=== PATIENT | male | born 1950 | race Caucasian/White ===

== ENCOUNTER 2016-06-30 10:17 | Outpatient (CLI) | payer OTHER | END 2016-06-30 10:18 | disposition home or self-care (01) | DX: R53.83 Other fatigue (principal); D64.9 Anemia, unspecified; E78.2 Mixed hyperlipidemia ==

== ENCOUNTER 2017-06-22 07:59 | Outpatient (CLI) | payer OTHER ==
[2017-06-22 10:23] LABS: BILIRUBIN,URINE NEGATIVE (NEGATIVE); GLUCOSE, URINE (UA) NEGATIVE (NEGATIVE); KETONES,URINE (UA) NEGATIVE (NEGATIVE); LEUKOCYTE ESTERASE, URINE NEGATIVE (NEGATIVE); NITRITE,URINE NEGATIVE (NEGATIVE); OCCULT BLOOD,URINE NEGATIVE (NEGATIVE); PH,URINE 6.5 PH (5.0-7.5); PROTEIN,URINE NEGATIVE (NEGATIVE); UROBILINOGEN,URINE 0.2 (NORMAL) E.U./dL (NORMAL)
[2017-06-22 10:25] LABS: BASOPHILS % (AUTO) 0.3 %; EOSINOPHILS # (AUTO) 0.1 10^3/uL (0.0-0.7); EOSINOPHILS % (AUTO) 1.5 %; HGB - HEMOGLOBIN 14.4 g/dL (14.0-18.0); LYMPHOCYTES # (AUTO) 1.3 10^3/uL (1.5-3.5); LYMPHOCYTES % (AUTO) 28.7 %; MEAN CORPUSCULAR HEMOGLOBIN 31.1 pg (27.0-31.0); MEAN CORPUSCULAR HGB CONC 33.9 g/dL (32.0-36.0); MEAN CORPUSCULAR VOLUME 91.5 fL (80.0-94.0); MEAN PLATELET VOLUME 8.7 fL (7.4-11.4); MEAN RETIC VALUE 113.5; MONOCYTES # (AUTO) 0.4 10^3/uL (0.0-1.0); MONOCYTES % (AUTO) 8.4 %; NEUTROPHILS # (AUTO) 2.8 10^3/uL (1.5-6.6); NEUTROPHILS % (AUTO) 61.1 %; PLT - PLATELET COUNT 174 10^3/uL (130-450); RED BLOOD COUNT 4.64 10^6/uL (4.70-6.10); RED CELL DISTRIBUTION WIDTH 13.5 % (12.0-15.0); WHITE BLOOD COUNT 4.5 x10^3/uL (4.8-10.8)
[2017-06-22 10:36] LABS: CLARITY,URINE CLEAR (CLEAR)
[2017-06-22 11:05] LABS: FERRITIN 49.4 ng/mL (23.9-336.2)
== END 2017-06-22 08:00 | disposition home or self-care (01) ==
LOC: LAB.F 07:59
PROVIDERS: ATTEND Internal Medicine
DX: R36.1 Hematospermia (principal); D64.9 Anemia, unspecified
CPT/HCPCS: 36415; 81001; 81003; 82607; 82728; 83010; 84153; 85025; 85044; 86880; 87086

== ENCOUNTER 2018-01-20 12:16 | Outpatient (CLI) | payer MEDICARE, OTHER ==
[2018-01-20 17:50] LABS: BASOPHILS % (AUTO) 0.4 %; EOSINOPHILS # (AUTO) 0.1 10^3/uL (0.0-0.7); EOSINOPHILS % (AUTO) 1.5 %; HGB - HEMOGLOBIN 13.8 g/dL (14.0-18.0); LYMPHOCYTES # (AUTO) 1.2 10^3/uL (1.5-3.5); LYMPHOCYTES % (AUTO) 22.3 %; MEAN CORPUSCULAR HEMOGLOBIN 31.1 pg (27.0-31.0); MEAN CORPUSCULAR HGB CONC 33.1 g/dL (32.0-36.0); MEAN PLATELET VOLUME 8.9 fL (7.4-11.4); MONOCYTES # (AUTO) 0.3 10^3/uL (0.0-1.0); MONOCYTES % (AUTO) 6.6 %; NEUTROPHILS # (AUTO) 3.6 10^3/uL (1.5-6.6); NEUTROPHILS % (AUTO) 69.2 %; PLT - PLATELET COUNT 246 10^3/uL (130-450); RED BLOOD COUNT 4.43 10^6/uL (4.70-6.10); RED CELL DISTRIBUTION WIDTH 13.5 % (12.0-15.0); WHITE BLOOD COUNT 5.2 x10^3/uL (4.8-10.8)
== END 2018-01-20 23:59 | disposition home or self-care (01) ==
LOC: LAB.F 12:16
PROVIDERS: ATTEND Internal Medicine
DX: D64.9 Anemia, unspecified (principal)
CPT/HCPCS: 36415; 85025

== ENCOUNTER 2018-06-27 08:00 | Outpatient (CLI) | payer MEDICARE | END 2018-06-27 23:59 | disposition home or self-care (01) | LOC: LAB.F 08:00 | PROVIDERS: ATTEND Internal Medicine Cardiovascular Disease | DX: I49.9 Cardiac arrhythmia, unspecified (principal); I49.3 Ventricular premature depolarization | CPT/HCPCS: 83735; 84443 ==

== ENCOUNTER 2020-02-01 10:20 | Outpatient (CLI) | payer MEDICARE ==
[2020-02-01 14:39] LABS: BASOPHILS % (AUTO) 0.4 %; EOSINOPHILS # (AUTO) 0.1 10^3/uL (0.0-0.7); HGB - HEMOGLOBIN 13.9 g/dL (14.0-18.0); LYMPHOCYTES # (AUTO) 1.3 10^3/uL (1.5-3.5); LYMPHOCYTES % (AUTO) 24.8 %; MEAN CORPUSCULAR HEMOGLOBIN 30.8 pg (27.0-31.0); MEAN CORPUSCULAR HGB CONC 32.3 g/dL (32.0-36.0); MEAN CORPUSCULAR VOLUME 95.1 fL (80.0-94.0); MEAN PLATELET VOLUME 10.3 fL (7.4-11.4); MONOCYTES # (AUTO) 0.4 10^3/uL (0.0-1.0); MONOCYTES % (AUTO) 7.9 %; NEUTROPHILS # (AUTO) 3.3 10^3/uL (1.5-6.6); NEUTROPHILS % (AUTO) 64.7 %; PLT - PLATELET COUNT 187 10^3/uL (130-450); RED BLOOD COUNT 4.52 10^6/uL (4.70-6.10); RED CELL DISTRIBUTION WIDTH 12.8 % (12.0-15.0)
[2020-02-01 15:16] LABS: ALBUMIN 4.2 g/dL (3.2-5.5); ALBUMIN/GLOBULIN RATIO 1.6 (1.0-2.2); ALKALINE PHOSPHATASE 65 IU/L (42-121); ALT ALANINE AMINOTRANSFERASE 22 IU/L (10-60); AST ASPARTATE AMINOTRANSFERASE 28 IU/L (10-42); BILIRUBIN,TOTAL 1.2 mg/dL (0.2-1.0); BUN - BLOOD UREA NITROGEN 22 mg/dL (6-20); CALCIUM 9.5 mg/dL (8.5-10.3); CARBON DIOXIDE - CO2 27 mmol/L (21-32); CHLORIDE 106 mmol/L (101-111); CHOL/HDL RATIO 2.8 (<5.0); CHOLESTEROL 223 mg/dL; CREATININE 0.9 mg/dL (0.6-1.2); GLUCOSE 95 mg/dL (70-100); HDL CHOLESTEROL 79 mg/dL; LDL CHOLESTEROL,CALCULATED 134 mg/dL; LDL/HDL RATIO 1.7 (<3.6); SODIUM 140 mmol/L (135-145); TOTAL PROTEIN 6.9 g/dL (6.7-8.2); VLDL CHOLESTEROL 10 mg/dL
== END 2020-02-01 10:21 | disposition home or self-care (01) ==
LOC: LAB.S 10:20
PROVIDERS: ATTEND Family Medicine
DX: I10 Essential (primary) hypertension (principal); M25.562 Pain in left knee; D64.9 Anemia, unspecified; N40.0 Benign prostatic hyperplasia without lower urinary tract symptoms
CPT/HCPCS: 36415; 80053; 80061; 84443; 85025; G0103; 83721; 84153

== ENCOUNTER 2020-02-02 16:39 | Outpatient (CLI) | payer MEDICARE | END 2020-02-02 16:40 | disposition home or self-care (01) | LOC: COV 16:39 | PROVIDERS: ATTEND Surgery | DX: Z01.812 Encounter for preprocedural laboratory examination (principal); Z20.828 Contact with and (suspected) exposure to other viral communicable diseases; K40.90 Unilateral inguinal hernia, without obstruction or gangrene, not specified as recurrent ==

== ENCOUNTER 2020-02-06 07:16 | Day surgery (SDC) | payer MEDICARE ==
[~2020-02-06 07:16] MED LIST: CEFAZOLIN SODIUM IN 0.9 % NACL 2 GM/100 ML BAG IV ONE
[2020-02-06] MEDS ORDERED: fentaNYL 100 MCG/2 ML VIAL IVP ONE (07:17)
[2020-02-06] MEDS ORDERED: MIDAZOLAM 2 MG/2 ML VIAL IVP ONE (07:17)
[2020-02-06] MEDS ORDERED: LACTATED RINGERS 1,000 ML IV ONE ×2 (07:54→10:18)
--- NOTE | 2020-02-06 08:04 | ANESTHESIA ---
Pre-Anesthesia VS, & Labs - Diagnosis Right Inguinal hernia - Procedure Right Open Inguinal Hernia Repair with Mesh Vital Signs: Temp Pulse Resp BP Pulse Ox 36.5 C 53 L 16 166/80 H 99 02/06/20 07:54 02/06/20 07:54 02/06/20 07:54 02/06/20 07:54 02/06/20 07:54 Height: 5 ft 10 in Weight (kg): 66.8 kg Body Mass Index: 21.1 BMI Classification: Healthy weight - NPO >8 hours - Lab Results Lab results reviewed: Yes Home Medications and Allergies Home Medications: Ambulatory Orders Cyanocobalamin (Vitamin B-12) [Vitamin B-12] 1,000 mcg PO DAILY 01/29/20 Multivitamin 1 each PO DAILY 01/29/20 Aspirin [Aspirin EC] 81 mg PO DAILY 02/06/20 Irbesartan [Avapro] 150 mg PO DAILY 06/06/18 Ferrous Gluconate [Iron] 1 tab PO DAILY 10/03/18 Cyanocobalamin (Vitamin B-12) [Vitamin B-12] 1,000 mcg PO DAILY 01/29/20 Multivitamin 1 each PO DAILY 01/29/20 Aspirin [Aspirin EC] 81 mg PO DAILY 02/06/20 Allergies/Adverse Reactions: Allergies Allergy/AdvReac Type Severity Reaction Status Date / Time No Known Drug Allergies Allergy Verified 10/03/18 16:06 Anes History & Medical History - Anesthetic History Anesthesia Complications: reports: Post-Operative Nausea/Vomiting Family history of Anesthesia Complications: Denies Family history of Malignant Hyperthermia: Denies - Medical History Cardiovascular: reports: Hypertension, Other Pulmonary: reports: None Gastrointestinal: reports: None Urinary: reports: Nocturia, Frequency Neuro: reports: None Musculoskeletal: reports: Osteoarthritis, Other (Cervical radiculopathy-improved with PT) Endocrine/Autoimmune: reports: None Blood Disorders: reports: None Skin: reports: None Smoking Status: Never smoker Psychosocial: reports: No issues indicated History of Cancer?: No - Surgical History General: Colonoscopy Results - EKG Results EKG Comparison: Reviewed EKG, Other (LBBB, SB-asymptomatic per patient) Exam General: Alert, Oriented x3, Cooperative, No acute distress Dental: WNL Mouth Opening: Greater than 4 Fingerbreadths Neck Mobility: Normal Mallampati classification: I Thyromental Distance: 4-6 cm Mental/Cognitive Status: Alert/Oriented X3 Cognitive Status: Within normal limits Plan Anesthesia Type: MAC (With surgeon doing field block), Other (GA as back up) Consent for Procedure(s) Verified and Reviewed: Yes Code Status: Attempt Resuscitation ASA classification: 2-Mild systemic disease Is this case an emergency?: No (Questions answered, consent obtained)
[2020-02-06] MEDS ORDERED: ONDANSETRON 4 MG/2 ML VIAL IVP PRN (08:21)
[2020-02-06] MEDS ORDERED: METOCLOPRAMIDE 10 MG/2 ML VIAL IVP PRN (08:21)
[2020-02-06] MEDS ORDERED: MORPHINE 2 MG/ML CARPUJECT IVP PRN (08:21)
[2020-02-06] MEDS ORDERED: ATROPINE ABBOJECT 1 MG/10 ML SYRINGE IVP PRN (08:21)
[2020-02-06] MEDS ORDERED: fentaNYL 100 MCG/2 ML VIAL IVP PRN (08:21)
[2020-02-06] MEDS ORDERED: ePHEDrine 50 MG/ML VIAL IVP PRN (08:21)
[2020-02-06] MEDS ORDERED: HYDROmorphone 0.5 MG/0.5 ML SYRINGE IVP PRN (08:21)
[2020-02-06] MEDS ORDERED: NALOXONE 0.4 MG/ML VIAL IVP PRN (08:21)
[2020-02-06] MEDS ORDERED: BUPIVACAINE 0.25% PF 30 ML VIAL ONE (08:24)
[2020-02-06] MEDS ORDERED: LIDOCAINE 1%-EPI 1:100000 20 ML MDV ONE (08:51)
[2020-02-06] MEDS ORDERED: BUPIVACAINE 0.25% PF 30 ML VIAL SUBQ ONE ×2 (08:58)
[2020-02-06] MEDS ORDERED: LIDOCAINE 1%-EPI 1:100000 20 ML MDV SUBQ ONE ×2 (08:58)
[2020-02-06] MEDS ORDERED: LACTATED RINGERS 1,000 ML IV SCH (09:00)
[2020-02-06] MEDS ORDERED: HYDROcod/ACETAM 5/325 MG TABLET PO PRN (10:29)
--- NOTE | 2020-02-06 10:33 | OPERATIVE REPORT ---
Operative Report - General Procedure Date: 02/06/20 Planned Procedure: open right inguinal hernia Pre-Op Diagnosis: right inguinal hernia Procedure Performed: open right inguinal hernia repair with mesh Post Op Diagnosis: indirect right inguinal hernia - Procedure Note Anesthesia Technique: Local, MAC Estimated Blood Loss (mL): 0 Complications: as above
[2020-02-06] MEDS ORDERED: HYDROcod/ACETAM 5/325 MG TABLET ONE (10:40)
[2020-02-06 10:49] VITALS: BP 150/73
--- NOTE | 2020-02-06 12:51 | ANESTHESIA POST OP EVALUATION ---
Anesthesia Post Eval - Post Anesthesia Eval Vitals: Last Vital Signs Temp 37 C 02/06/20 10:48 Pulse 74 02/06/20 10:48 Resp 14 02/06/20 10:48 BP 150/73 H 02/06/20 10:48 Pulse Ox 100 02/06/20 10:48 CV Function Including HR & BP: positive: Stable Pain Control: positive: Satisfactory Nausea & Vomiting: positive: Negative Mental Status: positive: Patient Participates Respiratory Status: Airway Patent Hydration Status: Satisfactory Anesthesia Complications: positive: None
--- NOTE | 2020-02-06 17:58 | PROCEDURE REPORT ---
DATE OF SERVICE: 02/06/2020 Physician: Dejon Castillo MD PREOPERATIVE DIAGNOSIS: Right inguinal hernia. POSTOPERATIVE DIAGNOSIS: Right inguinal hernia, indirect. PROCEDURE PERFORMED: Open right inguinal hernia repair with mesh, Luann. SURGEON: Dejon Castillo MD TELEVISION PROGRAM DIRECTOR: None. ANESTHESIA: Monitored anesthesia care, IV sedation, local anesthesia. COMPLICATIONS: None. SPECIMEN: Preperitoneal adipose tissue and indirect hernia sac removed, however, not sent for pathol ogy. ESTIMATED BLOOD LOSS: None. COMPLICATIONS: None. DRAINS: None. FINDINGS: A branching ilioinguinal nerve, which ran in a lateral direction. This was mobilized to a llow for repair. PROSTHETIC: Polypropylene mesh. INDICATIONS FOR PROCEDURE: The patient is a healthy, active, 69-year-old gentleman with a symptomati c right inguinal hernia. He presents for open repair with mesh. Risks discussed. Alternatives disc ussed. All questions answered and consent obtained. DESCRIPTION OF PROCEDURE: The patient was properly identified and brought to the operating room and placed in supine position. He voided prior to surgery. Sequential compression devices were placed. Monitored anesthesia care was given, as well as light sedation. He was prepped and draped in a ster ile fashion, and given preoperative antibiotics. Local anesthetic was given throughout the procedure . A 5 cm incision was made in the direction of Adriana's lines, just cephalad of the pubic tubercle. Dissection proceeded with cutting current cautery or sharp dissection. The superficial epigastric v ein was identified, clamped, divided, and tied with 3-0 Vicryl. The aponeurosis was opened in the di rection of its fibers. As above, he had a very lateral and branching ilioinguinal nerve. This was s harply mobilized away from the cord structures towards the internal ring. The cord structures were t hen mobilized and brought up. The shelving border of Poupart's ligament, pubic tubercle and Fidencio's ligament area was all defined. Herniated preperitoneal adipose tissue was mobilized away from the c ord structures, clamped, divided, and tied with a 2-0 silk. The indirect hernia sac was identified a nd mobilized back towards internal ring. It was clamped and suture ligated with a 2-0 silk and divid ed. The mesh was then cut to size and placed in Luann fashion. The mesh was secured with mul tiple interrupted 0 Ethibond sutures. Sutures were placed along the pubic tubercle area, the shelvin g border of Poupart's ligament and medially along the musculature or fascia of the internal plica. T he genitofemoral nerve lay loosely under the mesh. The ilioinguinal nerve was reflected back with th e cord structures during the repair. The medial tail of the mesh was secured to the shelving border of Poupart's ligament with two interrupted 0 Ethibond sutures recreating the internal ring of appropr iate size. The patient coughed, assuring a sturdy repair. The aponeurosis was closed with a running 2-0 Vicryl suture with care not to entrap the ilioinguinal nerve. Maicol's was closed with interrup jennifer 3-0 Vicryl suture. Skin was closed with a running 4-0 Monocryl subcuticular suture. Dressing wa s applied. He tolerated the procedure very well. TD: 02/06/2020 11:13
== END 2020-02-06 07:17 | disposition home or self-care (01) ==
LOC: SDS 07:16
PROVIDERS: ATTEND Surgery
DX: K40.90 Unilateral inguinal hernia, without obstruction or gangrene, not specified as recurrent (principal); I10 Essential (primary) hypertension; N40.0 Benign prostatic hyperplasia without lower urinary tract symptoms
CPT/HCPCS: 49505; A9270; C1781; J0690; J7120

== ENCOUNTER 2021-04-02 09:04 | Outpatient (CLI) | payer MEDICARE ==
[2021-04-02 14:07] LABS: BASOPHILS % (AUTO) 0.2 %; EOSINOPHILS # (AUTO) 0.1 10^3/uL (0.0-0.7); EOSINOPHILS % (AUTO) 2.8 %; HCT - HEMATOCRIT 42.3 % (42.0-52.0); HGB - HEMOGLOBIN 13.6 g/dL (14.0-18.0); LYMPHOCYTES # (AUTO) 1.3 10^3/uL (1.5-3.5); LYMPHOCYTES % (AUTO) 26.2 %; MEAN CORPUSCULAR HEMOGLOBIN 30.3 pg (27.0-31.0); MEAN CORPUSCULAR HGB CONC 32.2 g/dL (32.0-36.0); MEAN CORPUSCULAR VOLUME 94.2 fL (80.0-94.0); MEAN PLATELET VOLUME 10.2 fL (7.4-11.4); MONOCYTES # (AUTO) 0.5 10^3/uL (0.0-1.0); MONOCYTES % (AUTO) 9.1 %; NEUTROPHILS % (AUTO) 61.3 %; PLT - PLATELET COUNT 197 10^3/uL (130-450); RED BLOOD COUNT 4.49 10^6/uL (4.70-6.10); RED CELL DISTRIBUTION WIDTH 13.4 % (12.0-15.0)
[2021-04-02 14:41] LABS: ALBUMIN 4.1 g/dL (3.2-5.5); ALBUMIN/GLOBULIN RATIO 1.5 (1.0-2.2); ALKALINE PHOSPHATASE 61 IU/L (42-121); ALT ALANINE AMINOTRANSFERASE 23 IU/L (10-60); AST ASPARTATE AMINOTRANSFERASE 28 IU/L (10-42); BILIRUBIN,TOTAL 0.9 mg/dL (0.2-1.0); BUN - BLOOD UREA NITROGEN 22 mg/dL (6-20); CALCIUM 9.1 mg/dL (8.5-10.3); CARBON DIOXIDE - CO2 28 mmol/L (21-32); CHLORIDE 105 mmol/L (101-111); CHOL/HDL RATIO 2.9 (<5.0); CHOLESTEROL 217 mg/dL; CREATININE 0.9 mg/dL (0.6-1.2); GFR - MDRD 84 (>89); GLUCOSE 94 mg/dL (70-100); HDL CHOLESTEROL 74 mg/dL; LDL CHOLESTEROL,CALCULATED 132 mg/dL; LDL/HDL RATIO 1.8 (<3.6); POTASSIUM 3.9 mmol/L (3.5-5.0); SODIUM 140 mmol/L (135-145); TOTAL PROTEIN 6.9 g/dL (6.7-8.2); TRIGLYCERIDES 53 mg/dL; VLDL CHOLESTEROL 11 mg/dL
[2021-04-02 14:52] LABS: THYROID STIMULATING HORMONE 4.08 uIU/mL (0.34-5.60)
== END 2021-04-02 09:05 | disposition home or self-care (01) ==
LOC: LAB.S 09:04
PROVIDERS: ATTEND Family Medicine
DX: I10 Essential (primary) hypertension (principal); I44.7 Left bundle-branch block, unspecified; Z12.5 Encounter for screening for malignant neoplasm of prostate
CPT/HCPCS: 36415; 80053; 80061; 84443; 85025; G0103; 83721; 84153

== ENCOUNTER 2022-02-11 12:26 | Outpatient (CLI) | payer MEDICARE ==
--- NOTE | 2022-02-11 14:34 | Ultrasound Report ---
PROCEDURE: Testicle INDICATIONS: VARICOCELE TECHNIQUE: Real-time scanning was performed of the scrotum and testicles, with image documentation. Color and p ulse Doppler interrogation was performed of both testicles. COMPARISON: None. FINDINGS: Right: Testicle is normal in size at 4.7 x 1.7 x 3.5 cm, and homogenous in echotexture. Epididymis is normal in overall size and morphology. No hydrocele or varicoceles. Overlying scrotal skin is no rmal in thickness. Scattered microcalcifications are noted. Left: Testicle is normal in size at 4.4 x 1.8 x 2.8 cm, and homogeneous in echotexture. Epididymis is normal in overall size and morphology. No hydrocele. There is dilation of the left pampiniform pl exus consistent with varicocele with a vein which is dilated measuring 4 mm which is thrombosed. Ove rlying scrotal skin is normal in thickness. Calcifications in the mediastinum and tunica are noted Doppler: Color and pulse Doppler demonstrate normal and symmetric arterial flow in both testicles. IMPRESSION: 1. The palpable abnormality corresponds with a thrombosed varicocele on the left. 2. Microcalcifications in the right testicle. 3. Coarse benign-appearing mediastinal calcifications in the left testicle. 4. Normal bilateral epididymides. Reviewed by: Medhat Avery on 02/11/2022 2:32 PM PST Approved by: Medhat Avery on 02/11/2022 2:32 PM PST Station ID: [id number]
== END 2022-02-11 12:27 | disposition home or self-care (01) ==
LOC: DI 12:26
PROVIDERS: ATTEND Nurse Practitioner
DX: I86.1 Scrotal varices (principal); N50.89 Other specified disorders of the male genital organs

== ENCOUNTER 2023-05-04 12:52 | Outpatient (CLI) | payer MEDICARE | END 2023-05-04 12:53 | disposition home or self-care (01) | LOC: DI 12:52 | PROVIDERS: ATTEND Internal Medicine | DX: I49.3 Ventricular premature depolarization (principal); I51.7 Cardiomegaly; I34.0 Nonrheumatic mitral (valve) insufficiency | CPT/HCPCS: 93307 ==

== ENCOUNTER 2023-07-02 08:53 | Outpatient (CLI) | payer MEDICARE ==
[2023-07-02 09:04] LABS: BASOPHILS % (AUTO) 0.2 %; EOSINOPHILS # (AUTO) 0.1 10^3/uL (0.0-0.7); EOSINOPHILS % (AUTO) 1.7 %; HCT - HEMATOCRIT 41.7 % (42.0-52.0); HGB - HEMOGLOBIN 13.5 g/dL (14.0-18.0); LYMPHOCYTES # (AUTO) 1.2 10^3/uL (1.5-3.5); MEAN CORPUSCULAR HEMOGLOBIN 30.6 pg (27.0-31.0); MEAN CORPUSCULAR HGB CONC 32.4 g/dL (32.0-36.0); MEAN CORPUSCULAR VOLUME 94.6 fL (80.0-94.0); MEAN PLATELET VOLUME 9.4 fL (7.4-11.4); MONOCYTES # (AUTO) 0.4 10^3/uL (0.0-1.0); MONOCYTES % (AUTO) 8.3 %; NEUTROPHILS % (AUTO) 63.6 %; PLT - PLATELET COUNT 171 10^3/uL (130-450); RED BLOOD COUNT 4.41 10^6/uL (4.70-6.10); RED CELL DISTRIBUTION WIDTH 12.8 % (12.0-15.0); WHITE BLOOD COUNT 4.7 x10^3/uL (4.8-10.8)
[2023-07-02 09:21] LABS: ALBUMIN/GLOBULIN RATIO 1.5 (1.0-2.2); ALKALINE PHOSPHATASE 75 IU/L (42-121); ALT ALANINE AMINOTRANSFERASE 17 IU/L (10-60); AST ASPARTATE AMINOTRANSFERASE 20 IU/L (10-42); BILIRUBIN,TOTAL 0.8 mg/dL (0.2-1.0); BUN - BLOOD UREA NITROGEN 22 mg/dL (6-20); CALCIUM 9.6 mg/dL (8.5-10.3); CARBON DIOXIDE - CO2 28 mmol/L (21-32); CHLORIDE 107 mmol/L (101-111); CHOL/HDL RATIO 2.8 (<5.0); CHOLESTEROL 210 mg/dL; CREATININE 0.9 mg/dL (0.6-1.3); GFR - MDRD 83 (>89); GLUCOSE 91 mg/dL (74-104); HDL CHOLESTEROL 74 mg/dL; LDL CHOLESTEROL,CALCULATED 125 mg/dL; LDL/HDL RATIO 1.7 (<3.6); POTASSIUM 4.1 mmol/L (3.5-4.5); SODIUM 138 mmol/L (135-145); TOTAL PROTEIN 6.7 g/dL (6.4-8.9); TRIGLYCERIDES 57 mg/dL (48-352); VLDL CHOLESTEROL 11 mg/dL
[2023-07-02 09:34] LABS: THYROID STIMULATING HORMONE 5.13 uIU/mL (0.34-5.60)
== END 2023-07-02 08:54 | disposition home or self-care (01) ==
LOC: LAB 08:53
PROVIDERS: ATTEND Family Medicine
DX: I49.3 Ventricular premature depolarization (principal); R00.1 Bradycardia, unspecified; I10 Essential (primary) hypertension; G25.0 Essential tremor; Z12.5 Encounter for screening for malignant neoplasm of prostate
CPT/HCPCS: 36415; 80053; 80061; 84443; 85025; G0103; 83721; 84153